=== PATIENT | male | born 1995 | race Two or more races ===

== ENCOUNTER 2021-06-16 09:50 | Emergency (ER) | payer OTHER ==
[~2021-06-16] VITALS: Ht 167.6 cm; Wt 114.0 kg
[2021-06-16] MEDS ORDERED: IBUPROFEN 600MG TABLET PO ONE (10:15)
[2021-06-16] MEDS ORDERED: DIPHENHYDRAMINE 25MG CAPSULE PO ONE (10:15)
[2021-06-16] MEDS ORDERED: ACETAMINOPHEN 325MG TABLET PO NR (11:45)
[2021-06-16] MEDS ORDERED: ACETAMINOPHEN 500MG TABLET PO NR (11:45)
[2021-06-16] MEDS ORDERED: DIPHENHYDRAMINE 25MG CAPSULE PO NR (12:00)
[2021-06-16] MEDS ORDERED: IBUPROFEN 600MG TABLET PO NR (12:00)
[2021-06-16 12:03] VITALS: BP 162/82
[2021-06-16 12:17] LABS: HEMATOCRIT. 42.5 % (42.0-52.0); HEMOGLOBIN. 14.8 g/dL (14.0-18.0); MEAN CORPUSCULAR HEMOGLOBIN 29.7 pg (28.0-32.0); MEAN CORPUSCULAR VOLUME 85.1 fL (80.0-94.0); MEAN PLATELET VOLUME 7.9 fl (7.4-10.4); PLATELET 245 x1000/uL (130-400); RED CELL DISTRIBUTION WIDTH 13.5 % (11.6-14.6)
[2021-06-16 12:39] LABS: CHLORIDE 105 mEq/L (98-107)
[2021-06-16 12:44] LABS: PLATELET ESTIMATE NORMAL
[2021-06-16] MEDS ORDERED: SODIUM CHLORIDE 0.9% 1,000 ML IV ONE (14:30)
[2021-06-16] MEDS ORDERED: IOHEXOL-350 100 ML BOTTLE ONE (14:54)
== END 2021-06-16 15:18 | disposition home or self-care (01) ==
LOC: ER 10:03
DX: R07.89 Other chest pain (principal); J06.9 Acute upper respiratory infection, unspecified; R51.9 Headache, unspecified; I10 Essential (primary) hypertension; Z20.822 Contact with and (suspected) exposure to COVID-19
CPT/HCPCS: 36415; 71045; 71275; 80053; 83880; 84484; 85025; 85379; 87426; 87804; 93005; 99285; J7030; Q9967; Q0163

== ENCOUNTER 2022-05-19 02:32 | Emergency (ER) | payer MEDICAID, OTHER ==
[~2022-05-19] VITALS: Ht 172.7 cm; Wt 103.4 kg
[2022-05-19 02:35] VITALS: BP 143/70
== END 2022-05-19 03:35 | disposition left against medical advice (07) ==
LOC: ER 02:32
DX: R51.9 Headache, unspecified (principal); Z53.21 Procedure and treatment not carried out due to patient leaving prior to being seen by health care provider
CPT/HCPCS: 99281